=== PATIENT | female | born 1975 | race Two or more races ===

== ENCOUNTER 2017-12-14 16:00 | Emergency (ER) | payer MEDICAID ==
[~2017-12-14] VITALS: Ht 157.5 cm; Wt 72.6 kg
[2017-12-14 16:20] VITALS: BP 129/83
[2017-12-14] MEDS ORDERED: KETOROLAC TROMETH 60MG/2ML VIAL IM ONE (18:00)
== END 2017-12-14 18:21 | disposition home or self-care (01) ==
LOC: ER 16:11
DX: S16.1XXA Strain of muscle, fascia and tendon at neck level, initial encounter (principal); S09.8XXA Other specified injuries of head, initial encounter; W10.8XXA Fall (on) (from) other stairs and steps, initial encounter; Y93.89 Activity, other specified; Y92.89 Other specified places as the place of occurrence of the external cause; Y99.8 Other external cause status
CPT/HCPCS: 70450; 72125; 96372; 99284; J1885; L0120